=== PATIENT | female | born 1995 | race Caucasian/White ===

== ENCOUNTER 2021-09-23 11:39 | Emergency (ER) | payer SELFPAY ==
[~2021-09-23] VITALS: Ht 162.6 cm; Wt 61.4 kg
[2021-09-23 12:18] VITALS: BP 114/83
[2021-09-23 12:51] LABS: CLARITY,URINE CLOUDY (Clear); COLOR,URINE ORANGE (Yellow); UA COLLECTION TYPE CLN CATCH MIDSTREAM
[2021-09-23 12:54] LABS: URINE HCG NEGATIVE (NEG)
[2021-09-23 12:56] LABS: BACTERIA,URINE 4+ /HPF (Neg); MUCUS STRANDS NONE SEEN /LPF (Neg); RBC,URINE 0-2 /HPF (0-2); SQUAMOUS EPITHELIAL CELL,UR FEW /LPF (FEW); WBC CLUMPS,URINE FEW /HPF (NEGATIVE); WBC,URINE TNTC /HPF (0-4)
[2021-09-23] MEDS ORDERED: NITR100C6 PO (13:37)
[2021-09-23] MEDS ORDERED: PHEN-824 PO (13:37)
== END 2021-09-23 14:17 | disposition home or self-care (01) ==
LOC: ER 11:40
DX: N39.0 Urinary tract infection, site not specified (principal); R30.0 Dysuria; Z87.440 Personal history of urinary (tract) infections; Z79.899 Other long term (current) drug therapy
CPT/HCPCS: 81001; 81025; 87077; 87088; 87186; 99283